=== PATIENT | female | born 1965 | race Caucasian/White ===

== ENCOUNTER 2017-06-26 10:10 | Emergency (ER) | payer OTHER ==
--- OUTSIDE RECORDS SUMMARY | 2017-06-26 10:19 | XMS REPORT ---
:1965 External Reference #:[id number] Author Organization [facility] Address [address] [place] [address] Phone [phone] Care Team Providers Name Role Phone Elmer Johnson M.D. Primary Care Physician Unavailable Payers Type Date Identification Numbers Payment Provider Subscriber Commercial Effective: Policy Number: [id number] [place] Jody-Magdi Lopez 2016 Medicaid PayID: [id number] [address] [place] [id number] Problems Date Description Provider Status Onset: 09/30/2011 Anemia Elmer Johnson M.D. Active Onset: 09/30/2011 Essential hypertension Elmer Johnson M.D. Active Onset: 09/30/2011 Obesity Elmer Johnson M.D. Active Family History Date Family Member(s) Problem(s) Comments Father CAD CABG at 85 Mother Hypertension Onset: (age 77 Mother Cancer, Colon Years) First Son No Current Problems Siblings 4 First Brother "Heart problems" not an SC First Brother Diabetes Second Brother Arthritis s/p knee replacment Second Brother CAD No SC. Stents in his 60's First Sister No Current Problems Second Sister Arthritis Grandchildren 3 Social History Type Date Description Comments Diet Diet has lots of added salt. At servings of fruits a day. least 2 servings of dairy a day. 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 Also Cigarette Use Never Smoked Cigarettes ETOH Use does not use alcohol Daily Caffeine Drinks on average 3 sodas a week. Allergies, Adverse Reactions, Alerts Date Description Reaction Status Severity Comments 11/21/2011 Cephalexin active hives 10/29/2011 NKDA inactive Medications Medication Date Status Form Strength Qnty SIG Indications Ordering Provider Baclofen 06/14 Active Tablets 10mg 60tab take 05/10 s tablet by Johnson, mouth M.DLili three times a day prn, may increase to 1 tab three times a day after 3 days if needed Clobetasol 05/24 Active Foam 0.05% 100gm apply 1.5 L21.8 Shawnti R. 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 Selenium Sulfide 04/11 Active Shampoo 2.25% 180ml Apply to scalp Johnson, 2x/week M.D. for 2 weeks, then every 1-4 weeks as needed Ketoconazole 03/30 Active Shampoo 2% 360un apply to L21.8 its scalp once Johnson, daily for M.D. 1-3 days Augmented 02/26 Active Gel 0.05% 15gm Apply to Paige Betameth affected Janice Elizalde area of Delicia Pizarro scalp once nightly for 2 weeks [place] 3 02/26 Active Capsules Paige Moira Elizalde, R.D. Atenolol 02/14 Active Tablets 50mg 45tab 05/10 by s mouth Alex, every day MLiliDLili Glucosamine 02/27 Active Capsules 500-400mg 2 po qd Elmer Reza Johnson M.D. Vitamin D-3 02/27 Active Capsules 1000Unit 1 po qd Moira Johnson Ibuprofen 02/27 Active Tablets 200mg 2 po qhs Moira Johnson Probiotic 02/27 Active Capsules 1 po qd Moira Johnson Hydrochlorothiazid 02/23 Active Tablets 25mg 90tab Take 1 Elmer s Tablet By Johnson, Mouth M.DLili Every Day Multi Vitamin 0000 Active Tablets Unknown Daily /0000 Vitamin B-12 00 Active Tablets 1000mcg 1 by mouth Unknown Natural / every day Magnesium 00 Active Tablets 250mg 1 by mouth Unknown /0000 every day Biotin 00 Active Tablets 5mg 2 by mouth Unknown /0000 every day Cyclobenzaprine 06/11 Hx Tablets 10mg 30tab take 1 Paige HCL s tablet by Tonio, - mouth M.DLili, R.D. 06/14 times a day if needed for pain Tetracycline HCL 07/27 Hx Capsules 500mg 20cap 1 po bid x L71.0 s 10 days Alex, - M.DLili 07/26 Tetracycline HCL 07/27 Hx Capsules 250mg 20cap 1 po bid x L71.0 s 10 days Alex, - (after the M.D. 07/26mg capsules are done) Doxycycline 07/27 Hx Capsules 50mg 120ca 1 po bid x Monohydrate ps 8 weeks Kenia Johnson M.DLili 02/26 Colace 02/27 Hx Capsules 100mg 30cap 2 po qhs s Kenia Johnson M.Kee 07/27 Clindamycin 02/27 Hx Gel 1% 30uni apply to L70.0 ts affected Alex - area(s) M.DLili 07/27 two times a day Keflex 10/28 Hx Capsules 500mg 30cap 1 po tid 682.8 Dorys /2011 s Blair Caceres, - M.DLili 11/07 Nystatin 10/28 Hx Cream [id number] 80gm apply to 110.5 t/GM affected Blair Caceres, - area bid - M.DLili 02/26 tid prn Medrol Dosepak 10/22 Hx Tablets 4mg 1Pack take oraly Coltwnti R. per Beto, - package [employer] OPERATOR-C 10/28 Gentamicin Sulfate 08/17 Hx Solution 0.3% 1unit apply 2 372.00 Dorys s gtts in Blair Caceres, - each eyes M.D. 10/28 every hours Lotrisone 11/29 Hx Cream 15g apply 110.5 sparingly K.W. - bid to Greg, 11/24 rash in M.D. /2009 armpit x14 days Diflucan 11/29 Hx Tablets 100mg 11tab 2 po x 1 110.5 s to start, K.W. - then 1 qd Greg, 11/24 x 9 days M.D. Nystatin 10/23 Hx Cream [id number] 30gm apply to t/GM affected Alex - area bid - M.DLili 11/24 tid prn Clotrimazole 09/27 Hx Cream 1% 30gm apply to affected Alex, - area bid M.D. 11/24 Atenolol 09/03 Hx Tablets 25mg 90tab take 1 s tablet by Kenia Johnson mouth M.DLili 02/14 every day Enalapril 06/30 Hx Tablets 20mg 60tab 1 po qd Kenia Raman.DLili 09/03 Nizoral 04/22 Hx Cream 2% 15gm Apply qd 110.5 Lore A. /2004 For 2-3 Kenia Dahl F.N.P.CLili 11/24 Enalapril 03/30 Hx Tablets 10mg 30tab 1 po qd Kenia Raman M.D. 06/30 Enalapril 02/23 Hx Tablets 5mg 60tab 1 po qd s Kenia Johnson.DLili 03/30 Lisinopril & 01/21 Hx Tablets 10mg;12.5 30tab 1 po qd Elmer HCTZ /2005 mg s Kenia Johnson M.D. 02/23 Amoxicillin 08/28 Hx Caps 500mg 21cap 1 tid x 7 s days Kenia Cui M.D. 01/07 Ortho Novum 12/27 Hx Pack 1unit one qd Caleb s tuesday Kenia Jiang.DLili 01/07 Cephalexin 12/27 Hx Capsules 500mg 28cap one po qid Lavelle JLili s x 7 days Moira Salas - 04/26 Zithromax 12/27 Hx Tablets 250mg 6tabs 2 on day one, Kenia Dhillon one qd x4 M.DLili Medications Administered in Office Medication Date Status Form Strength Qnty SIG Indications Ordering Provider Injection, Administered Injection Elmer Johnson, Depo-Medrol 018 M.D. 40MG Injection, Administered Injection Elmer Johnson, Depo-Medrol 017 M.D. 40MG Injection, Administered Injection Elmer Johnson, Depo-Medrol 017 M.D. 40MG Injection, Administered Injection Elmer Johnson, Depo-Medrol 017 M.D. 40MG Immunizations CPT Code Status Date Vaccine Lot # [id number] Given 11/25/2009 Td Age 7 to adult Decavac, Colbyivac, [facility] [id number] Refused 03/30/2017 Influenza Virus Vaccine, Quadrivalent, Split, 6-35 Mo, PF Vital Signs Date Vital Result Comment 06/14/2017 Weight 297.00 lb Weight in kg's 134.719 BP Systolic 142 mmHg BP Diastolic 88 mmHg Heart Rate 80 /min Body Temperature 98.2 F Respiratory Rate 24 /min 05/24/2017 Weight 295.00 lb Weight in kg's 133.812 BP Systolic 140 mmHg BP Diastolic 88 mmHg Heart Rate 68 /min Body Temperature 97.5 F Respiratory Rate 15 /min O2 % BldC Oximetry 98 % 03/30/2017 Weight 298.00 lb Weight in kg's 135.173 BP Systolic 140 mmHg BP Diastolic 90 mmHg Heart Rate 68 /min Body Temperature 98.4 F O2 % BldC Oximetry 97 % 02/26/2017 Weight 296.00 lb Weight in kg's 134.266 BP Systolic 140 mmHg BP Diastolic 100 mmHg Heart Rate 68 /min Body Temperature 97.7 F Respiratory Rate 16 /min 01/12/2017 BP Systolic 140 mmHg BP Diastolic 83 mmHg Heart Rate 56 /min Body Temperature 98.3 F 08/12/2016 Weight 296.00 lb Weight in kg's 134.266 BP Systolic 148 mmHg BP Diastolic 86 mmHg Heart Rate 68 /min Respiratory Rate 20 /min 08/04/2016 Weight 298.00 lb Weight in kg's 135.173 BP Systolic 160 mmHg BP Diastolic 88 mmHg Heart Rate 76 /min 07/27/2016 Weight 300.00 lb Weight in kg's 136.080 BP Systolic 142 mmHg BP Diastolic 96 mmHg Heart Rate 83 /min Body Temperature 97.8 F Respiratory Rate 18 /min Height 64 inches 5'4" BMI (Body Mass Index) 51.5 kg/m2 O2 % BldC Oximetry 98 % 02/27/2015 Weight 297.00 lb Weight in kg's 134.719 BP Systolic 170 mmHg BP Diastolic 110 mmHg Heart Rate 72 /min Height 63.5 inches 5'3.50" BMI (Body Mass Index) 51.8 kg/m2 O2 % BldC Oximetry 96 % 12/24/2011 Weight 298.00 lb Weight in kg's 135.173 BP Systolic 140 mmHg BP Diastolic 92 mmHg Heart Rate 88 /min 10/29/2011 BP Systolic 160 mmHg BP Diastolic 80 mmHg Heart Rate 60 /min Body Temperature 98.8 F O2 % BldC Oximetry 99 % 08/18/2011 Weight 296.00 lb Weight in kg's 134.266 BP Systolic 118 mmHg BP Diastolic 80 mmHg Heart Rate 88 /min Body Temperature 98.0 F 07/15/2010 Weight 300.00 lb Weight in kg's 136.080 BP Systolic 150 mmHg BP Diastolic 96 mmHg Heart Rate 80 /min Body Temperature 98.1 F 11/25/2009 Weight 297.00 lb Weight in kg's 134.719 BP Systolic 148 mmHg BP Diastolic 90 mmHg Heart Rate 56 /min Skip 11/29/2008 Weight 300.00 lb Weight in kg's 136.080 BP Systolic 150 mmHg BP Diastolic 110 mmHg Heart Rate 60 /min Body Temperature 97.3 F 09/13/2008 Weight 308.00 lb Weight in kg's 139.709 BP Systolic 148 mmHg BP Diastolic 92 mmHg Heart Rate 80 /min 08/31/2007 Weight 303.00 lb Weight in kg's 137.441 BP Systolic 156 mmHg repeat 144/70 BP Diastolic 78 mmHg repeat 144/70 Heart Rate 60 /min 06/30/2005 Weight 286.00 lb Weight in kg's 129.730 BP Systolic 190 mmHg BP Diastolic 100 mmHg Heart Rate 80 /min 04/22/2005 Weight 284.00 lb Weight in kg's 128.822 BP Systolic 169 mmHg BP Diastolic 100 mmHg Heart Rate 80 /min 03/30/2005 Weight 281.00 lb Weight in kg's 127.462 BP Systolic 170 mmHg BP Diastolic 100 mmHg Heart Rate 100 /min 02/23/2005 Weight 280.00 lb Weight in kg's 127.008 BP Systolic 160 mmHg BP Diastolic 100 mmHg Heart Rate 60 /min 01/21/2005 Weight 272.00 lb Weight in kg's 123.379 BP Systolic 190 mmHg BP Diastolic 100 mmHg 01/07/2005 Weight 276.00 lb Weight in kg's 125.194 BP Systolic 188 mmHg BP Diastolic 124 mmHg Heart Rate 96 /min Body Temperature 97.9 F 08/28/2002 BP Systolic 130 mmHg BP Diastolic 80 mmHg Body Temperature 97.0 F 02/12/2002 Weight 292.00 lb Weight in kg's 132.5 BP Systolic 140 mmHg BP Diastolic 90 mmHg Heart Rate 80 /min Height 64 inches BMI (Body Mass Index) 50.1 kg/m2 12/27/2001 Weight 289.00 lb Weight in kg's 131.1 Heart Rate 80 /min Body Temperature 97.0 F Results Test Date Test Result H/L Range Note CBC Auto Diff 07/27/2016 White Blood Count 7.6 10^3/uL 3.5-10.8 Red Blood Count 5.27 10^6/uL 4.0-5.4 Hemoglobin 15.3 g/dL 12.0-16.0 Hematocrit 47 % 35-47 Mean Corpuscular Volume 90 fL 80-97 Mean Corpuscular Hemoglobin 29 pg 27-31 Mean Corpuscular HGB Conc 33 g/dL 31-36 Red Cell Distribution Width 14 % 10.5-15 Platelet Count 215 10^3/uL 150-450 Mean Platelet Volume 9 um3 7.4-10.4 Abs Neutrophils 4.4 10^3/uL 1.5-7.7 Abs Lymphocytes 2.2 10^3/uL 1.0-4.8 Abs Monocytes 0.8 10^3/uL 0-0.8 Abs Eosinophils 0.2 10^3/uL 0-0.6 Abs Basophils 0.1 10^3/uL 0-0.2 Abs Nucleated RBC 0.01 10^3/uL Granulocyte % 57.8 % 38-83 Lymphocyte % 28.4 % 25-47 Monocyte % 9.9 % High 1-9 Eosinophil % 3.0 % 0-6 Basophil % 0.9 % 0-2 Nucleated Red Blood Cells % 0.1 Comp Metabolic Panel 07/27/2016 Sodium 136 mmol/L 133-145 Potassium 4.3 mmol/L 3.5-5.0 Chloride 99 mmol/L Low 101-111 Co2 Carbon Dioxide 29 mmol/L 22-32 Anion Gap 8 mmol/L 2-11 Glucose 84 mg/dL 70-100 Blood Urea Nitrogen 15 mg/dL 6-24 Creatinine 0.74 mg/dL 0.51-0.95 BUN/Creatinine Ratio 20.3 High 8-20 Calcium 10.2 mg/dL 8.6-10.3 Total Protein 7.5 g/dL 6.4-8.9 Albumin 4.2 g/dL 3.2-5.2 Globulin 3.3 g/dL 2-4 Albumin/Globulin Ratio 1.3 1-3 Total Bilirubin 0.50 mg/dL 0.2-1.0 Alkaline Phosphatase 63 U/L 34-104 Alt 38 U/L 7-52 Ast 27 U/L 13-39 Egfr Non- 82.4 >60 Egfr 106.0 >60 1 Laboratory test finding 07/27/2016 TSH (Thyroid Stim 8.49 mcIU/mL High 0.34-5.60 2 Horm) Vitamin B12 669 pg/mL 180-914 3 Basic Metabolic Panel 02/28/2015 Sodium 136 mmol/L 133-145 Potassium 4.4 mmol/L 3.5-5.0 Chloride 99 mmol/L Low 101-111 Co2 Carbon Dioxide 29 mmol/L 22-32 Anion Gap 8 mmol/L 2-11 Glucose 108 mg/dL High 70-100 Blood Urea Nitrogen 17 mg/dL 6-24 Creatinine 0.72 mg/dL 0.51-0.95 BUN/Creatinine Ratio 23.6 High 8-20 Calcium 10.2 mg/dL 8.6-10.3 Egfr Non- 85.4 >60 Egfr 109.8 >60 4 Lipid Profile (Trig/Chol/HDL) 02/28/2015 Triglycerides 308 mg/dL 5 Cholesterol 184 mg/dL 6 HDL Cholesterol 35.6 mg/dL 7 LDL Cholesterol 87 mg/dL 8 Laboratory test finding 12/24/2011 Hemoglobin 13.2 CBC Auto Diff 11/02/2011 White Blood Count 10.6 CUMM 4.8-10.8 Red Cell Count 4.70 CUMM 4.2-5.4 Hemoglobin 9.4 g/dL Low 12.0-16.0 Hematocrit 30 % Low 35-47 Mean Corpuscular Volume 65 um3 Low 79-97 9 Mean Corpuscular Hemoglob 20 pg Low 27-31 Mean Corpuscular HGB Cone 31 g/dL Low 32-36 Redcell Distribution WDTH 18 % High 10.5-15 10 Platelet Count 332 CUMM 150-450 Mean Platelet Volume 7.4 um3 7.4-10.4 Gran % 71.3 % 38-83 Lymph % 11.8 % Low 25-47 Mononuclear % 11.0 % High 1-9 Eosinophil % 5.8 % 0-6 Basophil % 0.1 % 0-2 Abs Lymphs 1.3 1.0-4.8 Abs Mononuclear 1.2 High 0-0.8 Absolute Neutrophil Count 7.5 1.5-7.7 Abs Eosinophils 0.6 0-0.6 Abs Basophils 0 0-0.2 Comp Metabolic Panel 11/02/2011 Sodium 136 mmol/L 135-145 Potassium 3.7 mmol/L 3.5-5.0 Chloride 103 mmol/L 101-111 Co2 (Carbon Dioxide) 25.0 mmol/L 22-32 Anion Gap 8.0 mmol/L 2-11 11 Glucose 115 mg/dL High 70-100 BUN 10 mg/dL 6-24 Creatinine 0.9 mg/dL 0.50-1.40 One Over Creatinine 1.11 BUN/Creatinine Ratio 11.1 8-20 Calcium 9.2 mg/dL 8.1-9.9 Total Protein 6.6 GM/DL 6.2-8.1 Albumin 3.3 GM/DL Low 3.6-5.4 Globulin 3.3 GM/DL 2-4 Albumin/Globulin Ratio 1.0 1-3 Bilirubin Total 0.5 mg/dL 0.4-1.5 12 Alkaline Phosphatase 58 U/L 30-110 Alt (SGPT) 27 U/L 14-54 Ast (Sgot) 38 U/L 12-42 eGFR Non- 66.8 > 60 eGFR 85.9 > 60 13 Laboratory test finding 11/02/2011 C Reactive Protein 1.2 mg/dL High Less Than 0.5 Comp Metabolic Panel 11/01/2011 Sodium 136 mmol/L 135-145 Potassium 3.9 mmol/L 3.5-5.0 Chloride 106 mmol/L 101-111 Co2 (Carbon Dioxide) 26.0 mmol/L 22-32 Anion Gap 4.0 mmol/L 2-11 14 Glucose 138 mg/dL High 70-100 BUN 14 mg/dL 6-24 Creatinine 0.7 mg/dL 0.50-1.40 One Over Creatinine 1.42 BUN/Creatinine Ratio 20.0 8-20 Calcium 8.7 mg/dL 8.1-9.9 Total Protein 6.0 GM/DL Low 6.2-8.1 Albumin 2.9 GM/DL Low 3.6-5.4 Globulin 3.1 GM/DL 2-4 Albumin/Globulin Ratio 0.9 Low 1-3 Bilirubin Total 0.4 mg/dL 0.4-1.5 15 Alkaline Phosphatase 53 U/L 30-110 Alt (SGPT) 20 U/L 14-54 Ast (Sgot) 27 U/L 12-42 eGFR Non- 89.3 > 60 eGFR 114.9 > 60 16 CBC Auto Diff 11/01/2011 White Blood Count 7.8 CUMM 4.8-10.8 Red Cell Count 4.53 CUMM 4.2-5.4 Hemoglobin 9.1 g/dL Low 12.0-16.0 Hematocrit 29 % Low 35-47 Mean Corpuscular Volume 65 um3 Low 79-97 Mean Corpuscular Hemoglob 20 pg Low 27-31 Mean Corpuscular HGB Cone 31 g/dL Low 32-36 Redcell Distribution WDTH 20 % High 10.5-15 Platelet Count 310 CUMM 150-450 Mean Platelet Volume 7.8 um3 7.4-10.4 17 Manual Differential 11/01/2011 Polysegmented Neutrophil 77 % 38-83 Lymphocyte 14 % Low 25-47 Monocyte 5 % 0-13 Eosinophil 4 % 0-6 Anisocytosis SLIGHT Microcytosis SLIGHT Hypochromasia 1+ Ovalocytes FEW Manual Diff Comments (SEE NOTE) 18 Laboratory test finding 03/16/2010 Hemoglobin 14.1 Basic Metabolic Panel 11/25/2009 Sodium 134 mmol/L Low 135-145 Potassium 4.1 mmol/L 3.5-5.0 Chloride 101 mmol/L 101-111 Co2 (Carbon Dioxide) 25.0 mmol/L 22-32 Anion Gap 8.0 mmol/L 2-11 19 Glucose 77 mg/dL 70-100 20 BUN 11 mg/dL 6-24 Creatinine 0.80 mg/dL 0.50-1.40 One Over Creatinine 1.20 BUN/Creatinine Ratio 13.8 8-20 Calcium 9.2 mg/dL 8.1-9.9 21 eGFR Non- 82.1 > 60 eGFR 99.3 > 60 22 Lipid Profile (Trig/Chol/HDL) 11/25/2009 Triglyceride 208 mg/dL High 40- 200 Cholesterol 140 mg/dL Less Than 200 23 High Density Lipoprotein 36 mg/dL Low 40-60 24 Cholesterol/HDL Ratio 3.89 AVERAGE 1-4.44 Low Density Lipoprotein 62 mg/dL Less Than 100 25 Laboratory test finding 11/25/2009 Hemoglobin 10.0 g/dL Low 12.0-16.0 Urine Microalbumin Random 09/13/2008 Microalbumin (MG/L) 37.0 mg/L Urine Creatinine 188.31 mg/dL [place]/Creatinine Ratio 19.6 UG/MG Less Than 30 26 Urine DIP 09/22/2007 Leukocytes ++ Neg Urine Nitrites NEG Neg Urine pH 5 5-6 Total Protein, Urine TRACE Neg Urine Glucose NORM Norm Urine Ketones NEG Neg Urobilinogen NORM Norm Urine Bilirubin NEG Neg Urine Blood NEG Neg Specific [place] N/A Low 1.01-1.02 Microalbumin Random Urine 09/20/2007 Microalbumin, Random 36.9 ug/mL High 0.0-20.0 Creatinine,Random Ur 113.3 mg/dL Microalb/Creat Ratio 32.6 ug/mgCREA High 0.0-30.0 Urine DIP 09/20/2007 Leukocytes TRACE Neg Urine Nitrites NEG Neg Urine pH 5 5-6 Total Protein, Urine TRACE Neg Urine Glucose NORM Norm Urine Ketones NEG Neg Urobilinogen NORM Norm Urine Bilirubin NEG Neg Urine Blood NEG Neg Specific Victoria N/A Low 1.01-1.02 Laboratory test finding 02/14/2007 GFR (Calculated) 58 27 Basic Metabolic Panel 02/14/2007 Glucose 87 mg/dL 70-100 BUN 16 mg/dL 4-18 Creatinine, Serum 1.1 mg/dL 0.5-1.2 Sodium 140 mmol/L 136-146 Potassium 4.3 mmol/L 3.5-5.3 Chloride 107 mmol/L 98-110 Carbon Dioxide 17 mmol/L Low 20-32 Calcium 9.3 mg/dL 8.4-10.4 Basic Metabolic Panel 03/30/2005 One Over Creatinine 1.11 Anion Gap 6.0 mmol/L 2-11 28 BUN 13 mg/dL 6-24 Calcium 9.6 mg/dL 8.7-10.2 Chloride 105 mmol/L 101-111 Co2 (Carbon Dioxide) 27.0 mmol/L 22-32 Glucose 93 mg/dL 70-105 Potassium 4.3 mmol/L 3.5-5.0 Sodium 138 mmol/L 135-145 BUN/Creatinine Ratio 14.4 8-20 Creatinine 0.9 mg/dL 0.5-1.4 Comp Metabolic Panel 01/07/2005 One Over Creatinine 1.11 Anion Gap 6.0 mmol/L 2-11 29 Albumin/Globulin Ratio 1.1 1-3 Albumin 3.4 GM/DL Low 3.6-5.4 Alkaline Phosphatase 71 U/L 30-110 Alt (SGPT) 31 U/L 14-54 Ast (Sgot) 33 U/L 12-42 BUN 13 mg/dL 6-24 Calcium 9.3 mg/dL 8.7-10.2 Chloride 104 mmol/L 101-111 Co2 (Carbon Dioxide) 29.0 mmol/L 22-32 Globulin 3.2 GM/DL 2-4 Glucose 98 mg/dL 70-105 Potassium 4.2 mmol/L 3.5-5.0 Sodium 139 mmol/L 135-145 Bilirubin Total 0.6 mg/dL 0.4-1.5 Total Protein 6.6 GM/DL 6.2-8.1 BUN/Creatinine Ratio 14.4 8-20 Creatinine 0.9 mg/dL 0.5-1.4 Laboratory test finding 01/07/2005 TSH 3.95 MIU/ML 0.34-5.60 CBC With Manual Diff 01/07/2005 White Blood Count 9.7 CUMM 4.8-10.8 Anisocytosis 1+ Hematocrit 40 % 35-47 Hemoglobin 12.5 g/dL 12.0-16.0 Eosenophil 4 % 0-6 Lymphocyte 17 % 5-47 Mean Corpuscular HGB Cone 32 g/dL 32-36 Mean Corpuscular Hemoglob 24 pg Low 27-31 Mean Corpuscular Volume 76 um3 Low 79-97 Monocyte 3 % 0-13 Mean Platelet Volume 7.9 um3 7.4-10.4 Platelet Count 365 CUMM 150-450 Polychromasia SLIGHT Polysegmented Neutrophil 76 % 38-83 Red Cell Count 5.20 CUMM 4.2-5.4 Redcell Distribution WDTH 17 % High 10.5-15 Urine DIP 01/07/2005 Leukocytes neg Neg Urine Nitrites neg Neg Urine pH 5 5-6 Total Protein, Urine 100 High Neg Urine Glucose norm Norm Urine Ketones neg Neg Urobolinogen norm Norm Urine Bilirubin neg Neg Urine Blood 250 High Neg Specific Victoria na Low 1.01-1.02 CBC With Electronic Diff 01/07/2005 White Blood Count 9.7 CUMM 4.8-10.8 Hematocrit 40 % 35-47 Hemoglobin 12.5 g/dL 12.0-16.0 Mean Corpuscular HGB Cone 32 g/dL 32-36 Mean Corpuscular Hemoglob 24 pg Low 27-31 Mean Corpuscular Volume 76 um3 Low 79-97 Mean Platelet Volume 7.9 um3 7.4-10.4 Platelet Count 365 CUMM 150-450 Red Cell Count 5.20 CUMM 4.2-5.4 Redcell Distribution WDTH 17 % High 10.5-15 Laboratory test finding 08/28/2002 Strep Screen POSITIVE Neg Laboratory test finding 02/12/2002 Pap Smear REC'D-SEE IMAGE Urine DIP 02/12/2002 Leukocytes NEG Neg Urine Nitrites NEG Neg Urine pH 5 5-6 Total Protein, Urine NL Neg Urine Glucose NL Norm Urine Ketones NL Neg Urobolinogen NL Norm Urine Bilirubin NL Neg Urine Blood NL Neg Specific Victoria N/A Low 1.01-1.02 Laboratory test finding 02/12/2002 Hemoglobin 12.2 1 Because ethnic data is not always readily available, this report includes an eGFR for both -Americans and non- Americans. The National Kidney Disease Education Program (NKDEP) does not endorse the use of the MDRD equation for patients that are not between the ages of 18 and 70, are , have extremes of body size, muscle mass, or nutritional status, or are non- or non-. According to the National Kidney Foundation, irrespective of diagnosis, the stage of the disease is based on the level of kidney function: Stage Description GFR(mL/min/1.73 m(2)) 1 Kidney damage with normal or decreased GFR 90 2 Kidney damage with mild decrease in GFR 60-89 3 Moderate decrease in GFR 30-59 4 Severe decrease in GFR 15-29 5 Kidney failure <15 (or dialysis) 2 [id number] 3 Normal Range 180 to 914 Indeterminate Range 145 to 180 Deficient Range <145 4 Because ethnic data is not always readily available, this report includes an eGFR for both -Americans and non- Americans. The National Kidney Disease Education Program (NKDEP) does not endorse the use of the MDRD equation for patients that are not between the ages of 18 and 70, are , have extremes of body size, muscle mass, or nutritional status, or are non- or non-. According to the National Kidney Foundation, irrespective of diagnosis, the stage of the disease is based on the level of kidney function: Stage Description GFR(mL/min/1.73 m(2)) 1 Kidney damage with normal or decreased GFR 90 2 Kidney damage with mild decrease in GFR 60-89 3 Moderate decrease in GFR 30-59 4 Severe decrease in GFR 15-29 5 Kidney failure <15 (or dialysis) 5 Desirable <150 Borderline high 150-199 High 200-499 Very High >500 6 Desirable <200 Borderline high 200-239 High >239 7 Low <40 Desirable: 40-60 High: >60 8 Desirable: <100 mg/dL Near Optimal: 100-129 mg/dL Borderline High: 130-159 mg/dL High: 160-189 mg/dL Very High: >189 mg/dL 9 CONSISTENT WITH PREVIOUS RESULTS 10 CONSISTENT WITH PREVIOUS RESULTS 11 Anion gap measurement may be of limited value in the presence of any alkalosis, especially in a combined acid base disorder. . 12 A metabolite of Naproxen, O-desmethylnaproxen, has been shown to interfere with the [place] method for measuring total bilirubin. Samples from patients who have taken Naproxen have shown spurious elevation in total bilirubin levels. 13 Because ethnic data is not always readily available, this report includes an eGFR for both -Americans and non- Americans. The National Kidney Disease Education Program (NKDEP) does not endorse the use of the MDRD equation for patients that are not between the ages of 18 and 70, are , have extremes of body size, muscle mass, or nutritional status, or are non- or non-. According to the National Kidney Foundation, irrespective of diagnosis, the stage of the disease is based on the level of kidney function: Stage Description GFR(mL/min/1.73 m(2)) 1 Kidney damage with normal or decreased GFR 90 2 Kidney damage with mild decrease in GFR 60-89 3 Moderate decrease in GFR 30-59 4 Severe decrease in GFR 15-29 5 Kidney failure <15 (or dialysis) 14 Anion gap measurement may be of limited value in the presence of any alkalosis, especially in a combined acid base disorder. . 15 A metabolite of Naproxen, O-desmethylnaproxen, has been shown to interfere with the [place] method for measuring total bilirubin. Samples from patients who have taken Naproxen have shown spurious elevation in total bilirubin levels. 16 Because ethnic data is not always readily available, this report includes an eGFR for both -Americans and non- Americans. The National Kidney Disease Education Program (NKDEP) does not endorse the use of the MDRD equation for patients that are not between the ages of 18 and 70, are , have extremes of body size, muscle mass, or nutritional status, or are non- or non-. According to the National Kidney Foundation, irrespective of diagnosis, the stage of the disease is based on the level of kidney function: Stage Description GFR(mL/min/1.73 m(2)) 1 Kidney damage with normal or decreased GFR 90 2 Kidney damage with mild decrease in GFR 60-89 3 Moderate decrease in GFR 30-59 4 Severe decrease in GFR 15-29 5 Kidney failure <15 (or dialysis) 17 Anemia 3+ Microcytosis 2+ Anisocytosis 18 CBC AND SMEAR REVIEWED. Microcytic anemia noted. Red cell parameters suggstive of hemoglobinopathy or production defect. Additional studies may be considered. REVIEWED BY RENITA NORTON MD 19 Anion gap measurement may be of limited value in the presence of any alkalosis, especially in a combined acid base disorder. . 20 Note change in reference range as of 12/28/07. The change was based on recommendations from the [place] [employer]. 21 Please note change in reference range effective 07 . 22 Because ethnic data is not always readily available, this report includes an eGFR for both -Americans and non- Americans. The National Kidney Disease Education Program (NKDEP) does not endorse the use of the MDRD equation for patients that are not between the ages of 18 and 70, are , have extremes of body size, muscle mass, or nutritional status, or are non- or non-. According to the National Kidney Foundation, irrespective of diagnosis, the stage of the disease is based on the level of kidney function: Stage Description GFR(mL/min/1.73 m(2)) 1 Kidney damage with normal or decreased GFR 90 2 Kidney damage with mild decrease in GFR 60-89 3 Moderate decrease in GFR 30-59 4 Severe decrease in GFR 15-29 5 Kidney failure <15 (or dialysis) 23 CHOLESTEROL INTERPRETATION: Desirable: Less than 200 MG/DL Borderline-High Risk: 200-239 MG/DL High-Risk: 240 MG/DL and over 24 HDL INTERPRETATION: Undesirable: High Risk: Less than 40 MG/DL Desirable: Low Risk: Greater than 60 MG/DL 25 LDL INTERPRETATION: Low Risk Optimal Level: LDL Less than 100 MG/DL Near or Above Optimal: LDL 100-129 MG/DL Borderline High Risk: LDL 130-159 MG/DL High Risk: LDL 160-189 MG/DL Very High Risk: LDL Greater than 189 MG/DL 26 MICROALBUMINURIA IN A RANDOM SAMPLE IS DEFINED : MICROALBUMIN/CREATININE RATIO OF 30-299 ug/mg. . 27 mL/min/1.73m2 . Normal Function or Mild Renal Disease, if clinically at risk: >or=60 Moderately decreased: 30 - 59 Severely decreased: 15 - 29 Renal Failure: <15 . Please note that the MDRD equation requires an additional adjustment for -Americans (multiply the GFR result by 1.210). . Glomerular Filtration Rate (GFR) is estimated based on the MDRD equation, which assumes a steady state for creatinine (Barbara Int Med 139/2 137-149, 2003), as recommended by the National Kidney Disease Education Program in conjunction with the National Institutes of Health and the National Kidney Foundation. . Clinical conditions in which it may be necessary to measure GFR by using clearance methods include extremes of age and body size, severe malnutrition or obesity, diseases of skeletal muscle, paraplegia or quadriplegia, vegetarian diet, rapidly changing kidney function, and calculation of the dose of potentially toxic drugs that are excreted by the kidneys. 28 Anion gap measurement may be of limited value in the presence of any alkalosis, especially in a combined acid base disorder. . 29 Anion gap measurement may be of limited value in the presence of any alkalosis, especially in a combined acid base disorder. . Procedures Date CPT Code Description Status 05/24/2017 Aspiration/Injection Major Bursa Completed 01/12/2017 Aspiration/Injection Major Bursa Completed 08/12/2016 Aspiration/Injection Major Bursa Completed 08/04/2016 Aspiration/Injection Major Bursa Completed 12/24/2011 94978 EKG, at Least 12 Leads w/Interpretation and Report Completed Encounters Type Date Location Provider CPT E/M Dx Office Visit 03/30/2017 11:30a Main Office Elmer Johnson M.D. 03969 L21.8 Office Visit 02/26/2017 10:15a Main Office Paige Elizalde M.D., R.DLili 90370 L21.8 Office Visit 08/04/2016 11:30a Main Office Elmer Johnson M.D. 08727 N64.59 M17.9 M25.562 Office Visit 07/27/2016 11:30a Main Office Elmer Johnson M.D. 66087 Z00.00 I10 M25.562 L71.0 G60.9 Office Visit 02/27/2015 11:30a Main Office Elmer Johnson M.D. 93439 I10 L70.0 Office Visit 12/24/2011 10:00a Main Office Elmer Johnson M.D. 96595 401.9 285.9 Office Visit 10/29/2011 9:30a Main Office Dorys Caceres M.D. 49726 682.8 110.5 401.9 Office Visit 08/18/2011 11:15a Main Office Dorys Caceres M.D. 58321 372.00 Office Visit 07/15/2010 8:45a [place] [address] 380.4 Office Visit 11/25/2009 11:45a Main Office Elmer Johnson M.D. 47668 401.9 V06.5 Office Visit 11/29/2008 10:15a Main Office Ruthie Garza M.D. 34244 110.5 Office Visit 09/13/2008 11:00a Main Office Elmer Johnson M.D. 50933 401.9 791.0 Office Visit 08/31/2007 10:45a Main Office Elmer Johnson M.D. 36681 401.9 Office Visit 06/30/2005 10:30a Main Office Elmer Johnson M.D. 55534 401.9 Office Visit 04/22/2005 9:30a Main Office Wali QuesadaCLili 71261 110.5 Office Visit 03/30/2005 10:45a Main Office Elmer Johnson M.D. 36338 401.9 Office Visit 02/23/2005 10:45a Main Office Elmer Johnson M.D. 44651 401.9 Office Visit 01/21/2005 9:45a Main Office Elmer Johnson M.D. 54565 401.9 Office Visit 01/07/2005 2:00p Main Office Elmer Johnson M.D. 36755 401.9 278.00 Office Visit 08/28/2002 1:15p Main Office Nicolasa Cui M.D. 21248 463 Office Visit 02/12/2002 9:15a Main Office Nicolasa Cui M.D. 74101 401.9 V72.3 Office Visit 12/27/2001 6:00p Main Office Caleb Jiang M.D. 23550 466.0 466 Plan of Care Future Appointment(s):07/27/2017 9:30 am - Elmer Johnson M.D. at Main [id number] - Elmer Johnson M.D.M54.9 Dorsalgia, unspecifiedComments:Likely musculoskeletal strain.No radicular sx.1. Discussed gentle ROM exercises, rest, antiinflammatories, muscle relaxants, given the spasmotic nature of the pain I want to try a different muscle relaxant. and pain control.2. Discussed alarm sx. of persistent weakness, numbness or new incontinence.3.PT referral if sx. not improving. 4. She declines narcotics for now.The pain is very episodic so these are not likely the best treatment anyhow.
[2017-06-26 10:30] VITALS: BP 159/85
--- NOTE | 2017-06-26 11:51 | RAD ---
INDICATION: Left shoulder injury. TECHNIQUE: 4 views of the left shoulder were obtained. FINDINGS: The bones are in normal alignment. No fracture is seen. Joint spaces appear maintained. IMPRESSION: NO EVIDENCE OF FRACTURE.
--- NOTE | 2017-06-26 13:08 | UC ---
Homero Escalante Stephanie, scribed for Omar Hayden MD on 06/26/17 at 1137 . Upper Extremity HPI - HPI Summary HPI Summary: The pt is a 51 y/o F presenting to with c/o L shoulder pain that began yesterday morning s/p fall. The pt states she missed a step while walking down the stairs and caught her L arm on a railing. Aggravating factors include lifting and movement. The pt denies wrist pain. The pain is rated as a 7 in severity. - History of Current Complaint Chief Complaint: UCUpperExtremity Stated Complaint: SHOULDER INJURY Time Seen by Provider: 06/26/17 11:10 Hx Obtained From: Patient Hx Last Menstrual Period: unknown ?: No Onset/Duration: Sudden Onset - s/p fall yesterday morning Severity Currently: Moderate Pain Intensity: 4 Pain Scale Used: 0-10 Numeric Location Of Pain: Is Discrete @ - L shoulder Aggravating Factor(s): Movement, Lifting Alleviating Factor(s): Rest Associated Signs And Symptoms: Positive: Negative - Allergies/Home Medications Allergies/Adverse Reactions: Allergies Allergy/AdvReac Type Severity Reaction Status Date / Time cephalexin Allergy Intermediate Hives Verified 06/26/17 10:31 Home Medications: Home Medications Atenolol TAB* [Tenormin TAB* 25 MG] 25 mg PO DAILY 06/26/17 [History Confirmed 06/26/17] hydroCHLOROthiazide [Hydrochlorothiazide] 25 mg PO DAILY 06/26/17 [History Confirmed 06/26/17] PMH/Surg Hx/FS Hx/Imm Hx Previously Healthy: No - The pt denies past medical hx. - Surgical History Surgical History: None Surgery Procedure, Year, and Place: denies - Family History Known Family History: Positive: Cardiac Disease, Hypertension, Other - cancer - Social History Occupation: Works From/At Home Lives: With Family Alcohol Use: None Substance Use Type: Marijuana Smoking Status (MU): Never Smoked Tobacco Review of Systems Constitutional: Negative Skin: Negative Eyes: Negative ENT: Negative Respiratory: Negative Cardiovascular: Negative Gastrointestinal: Negative Genitourinary: Negative Motor: Negative Neurovascular: Negative Musculoskeletal: Other: - L shoulder pain, denies bilateral wrist pain Neurological: Negative Psychological: Negative All Other Systems Reviewed And Are Negative: Yes Physical Exam Triage Information Reviewed: Yes Vital Signs: Initial Vital Signs Temp 97.8 F 02/18/18 10:25 Pulse 57 06/26/17 10:25 Resp 18 06/26/17 10:25 BP 159/85 06/26/17 10:25 Pulse Ox 96 06/26/17 10:25 Vital Signs Reviewed: Yes - Additional Comments General: well-appearing, no pain distress Skin: warm, color reflects adequate perfusion, dry Head: normal Eyes: EOMI, REINALDO ENT: normal Neck: supple, nontender Respiratory: CTA, breath sounds present Cardiovascular: RRR Abdomen: soft, nontender Bowel: present Musculoskeletal: ROM T7 bilaterally. Tender at shoulder joint. Strength 5/5. Slight decreased ROM Abduction: 170 R, 160 L Extension: R 180, L 160 Neurological: normal, sensory/motor intact, A&O x3 Psychological: affect/mood appropriate Diagnostics - Radiology XRAY shoulder Xray Interpretation: No Acute Changes Radiology Interpretation Completed By: Radiologist - NO EVIDENCE OF FRACTURE Upper Extremity Course/Dx - Course Course Of Treatment: Medications reviewed. BP noted and advised to follow up with PCP. DISCUSSED X-RAY RESULTS WITH PATIENT. - Differential Dx/Diagnosis Provider Diagnoses: LEFT SHOULDER SPRAIN, PROBABLE ROTATOR CUFF INJURY Discharge - Discharge Plan Condition: Stable Disposition: HOME Patient Education Materials: Rotator Cuff Injury (ED), Shoulder Sprain (ED) Referrals: [facility] [Outside] Elmer Johnson MD [Primary Care Provider] - Additional Instructions: FOLLOW UP WITH YOUR DOCTOR. GET RECHECKED FOR ANY WORSENING OF YOUR CONDITION OR QUESTIONS OR CONCERNS. Your blood pressure was elevated during todays visit; please follow up with your primary care provider within a week for further evaluation The documentation as recorded by the Homero brown Stephanie accurately reflects the service I personally performed and the decisions made by me, Omar Hayden MD.
== END 2017-06-26 12:27 | disposition home or self-care (01) ==
LOC: UCEAST 10:10
DX: S43.402A Unspecified sprain of left shoulder joint, initial encounter (principal); W19.XXXA Unspecified fall, initial encounter; Y92.9 Unspecified place or not applicable
CPT/HCPCS: 99211; G0463

== ENCOUNTER 2019-03-20 17:34 | Emergency (ER) | payer OTHER ==
[2019-03-20 17:49] VITALS: BP 153/86
--- NOTE | 2019-03-20 17:51 | UC ---
Skin Complaint HPI - HPI Summary HPI Summary: 53 yo female presents with lesion on left calf. She tells me that on 03/15 she noticed some red bumps on the back of her left calf that were slightly tender. Since that time they progressed to becoming more red, then blistering, then oozing watery discharge, then crusted yesterday. She is concerned about a tick bite. She feels well otherwise and has never had shingles. She denies fever, chills, recent illness, similar lesions elsewhere. - History of Current Complaint Chief Complaint: UCRash Time Seen by Provider: 03/20/19 17:50 Stated Complaint: SPOT ON LEG Hx Obtained From: Patient Hx Last Menstrual Period: unknown Onset/Duration: Gradual Onset Onset Severity: Mild Current Severity: Mild Pain Intensity: 2 Pain Scale Used: 0-10 Numeric - Allergy/Home Medications Allergies/Adverse Reactions: Allergies Allergy/AdvReac Type Severity Reaction Status Date / Time cephalexin Allergy Intermediate Hives Verified 03/20/19 17:39 Home Medications: Home Medications Irbesartan 1 tab PO DAILY 03/20/19 [History Confirmed 03/20/19] Levothyroxine TAB* [Synthorid 112 MCG TAB*] 1 tab PO DAILY 03/20/19 [History] PMH/Surg Hx/FS Hx/Imm Hx Endocrine History: Hypothyroidism Cardiovascular History: Hypertension - Surgical History Surgical History: None Surgery Procedure, Year, and Place: denies - Family History Known Family History: Positive: Cardiac Disease, Hypertension, Other - cancer - Social History Occupation: Employed Full-time Lives: With Family Alcohol Use: None Substance Use Type: None Smoking Status (MU): Never Smoked Tobacco Review of Systems All Other Systems Reviewed And Are Negative: No Constitutional: Positive: Negative Skin: Positive: Rash Eyes: Positive: Negative ENT: Positive: Negative Respiratory: Positive: Negative Cardiovascular: Positive: Negative Gastrointestinal: Positive: Negative Neurological: Positive: Negative Psychological: Positive: Negative Physical Exam - Summary Physical Exam Summary: GENERAL: NAD. WDWN. No pain distress. SKIN: LEFT CALF: 1.5cm area of cluster of dried erythematous scabs that are slightly TTP. No active drainage. No streaking or abscess appreciated. CHEST: No accessory muscle use. Breathing comfortably and in no distress. CV: Pulses intact. Cap refill <2seconds NEURO: Alert. PSYCH: Age appropriate behavior. Triage Information Reviewed: Yes Vital Signs: Initial Vital Signs Temp 97.6 F 03/20/19 17:41 Pulse 82 03/20/19 17:41 Resp 16 03/20/19 17:41 BP 153/86 03/20/19 17:41 Pulse Ox 99 03/20/19 17:41 Vital Signs Reviewed: Yes Course/Dx - Course Course Of Treatment: History and exam consistent with shingles. Area has started scabbing. Educated pt. Advised to keep covered daily until well healed - Diagnoses Provider Diagnosis: Shingles Discharge ED - Sign-Out/Discharge Documenting (check all that apply): Patient Departure All imaging exams completed and their final reports reviewed: No Studies - Discharge Plan Condition: Stable Disposition: HOME Patient Education Materials: Shingles (ED), Shingles Vaccine (ED) Referrals: Elmer Johnson MD [Primary Care Provider] - Additional Instructions: If you develop a fever, shortness of breath, chest pain, new or worsening symptoms - please call your PCP or go to the ED immediately. Your blood pressure was slightly elevated at todays visit. Please see your primary provider within 4 weeks for recheck and re-evaluation. Please keep the area covered daily until well healed - Billing Disposition and Condition Condition: STABLE Disposition: Home
== END 2019-03-20 18:10 | disposition home or self-care (01) ==
LOC: UCEAST 17:34
DX: B02.9 Zoster without complications (principal); E03.9 Hypothyroidism, unspecified; I10 Essential (primary) hypertension; Z88.1 Allergy status to other antibiotic agents; Z79.890 Hormone replacement therapy; Z79.899 Other long term (current) drug therapy; Z82.49 Family history of ischemic heart disease and other diseases of the circulatory system
CPT/HCPCS: 99211; G0463

== ENCOUNTER 2020-10-23 05:44 | Inpatient (IN) ==
[2020-10-23] MEDS ORDERED: Buffered Lidocaine 1% SYRIN 1 ml INTRADERM ONE (06:00)
[2020-10-23] MEDS ORDERED: Lactated Ringers 1000 ml BAG 1,000 ML IV SCH (06:00)
[2020-10-23] MEDS ORDERED: Clindamycin 900 MG/D5W BAG 900 MG/50 ML BAG IVPB ONE (07:05)
[2020-10-23] MEDS ORDERED: Propofol 10 MG/ML 20 ML BTL ONE ×2 (07:06→09:36)
[2020-10-23] MEDS ORDERED: Lidocaine 2% PF 5 ML VIAL ONE (07:07)
[2020-10-23] MEDS ORDERED: Phenylephrine IV 10 MG/ML 1 ml VIAL ONE (07:11)
[2020-10-23] MEDS ORDERED: Ketamine HCL 50 mg/ml 10 ml VIAL (500 MG) ONE (07:11)
[2020-10-23] MEDS ORDERED: Ropivacaine 5 MG/ML 20 ML VIAL 0.5% (100 MG) ONE (07:15)
[2020-10-23] MEDS ORDERED: Lidocaine 1% MPF 5 ML VIAL ONE (07:35)
[2020-10-23] MEDS ORDERED: ROPIVACAINE 5 MG/ML 30 ML BTL (0.5%) ONE (07:35)
[2020-10-23] MEDS ORDERED: Midazolam 5 mg/5 ml VIAL 1 mg/ml 5 ml VIAL (5 mg) ONE (07:40)
[2020-10-23] MEDS ORDERED: Acetaminophen IV 1 GM/100ML 100 ML ONE (08:23)
[2020-10-23] MEDS ORDERED: Glycopyrrolate IV 0.2 MG/ML 1 ML VIAL ONE (08:28)
[2020-10-23] MEDS ORDERED: DiMENhydriNATE IV 50 mg/ml 1 ml VIAL IV PUSH PRN (08:41)
[2020-10-23] MEDS ORDERED: Naloxone 0.4 mg VIAL 0.4 mg/ml 1 ml VIAL IV PRN ×2 (08:41→08:43)
[2020-10-23] MEDS ORDERED: HYDROmorphone 1 MG/1 ML SYRINGE IV PRN (08:43)
[2020-10-23] MEDS ORDERED: Lactulose 30 ml UDC PO PRN (08:52)
[2020-10-23] MEDS ORDERED: Magnesium Hydroxide LIQ 30 ML UDC PO PRN (08:52)
[2020-10-23] MEDS ORDERED: Ondansetron 4 mg VIAL 2 MG/ML 2 ml VIAL IV PRN (08:52)
[2020-10-23] MEDS ORDERED: Ondansetron ODT 4 mg TAB 4 MG TAB PO PRN (08:52)
[2020-10-23] MEDS ORDERED: diPHENhydraMINE 25 mg TAB PO PRN (08:52)
[2020-10-23] MEDS ORDERED: diPHENhydraMINE IV 50 MG/ML 1 ml VIAL (BENADRYL) IV PRN (08:52)
[2020-10-23] MEDS ORDERED: Morphine 2 MG/ML SYRINGE IV PRN (08:52)
[2020-10-23] MEDS ORDERED: Dexamethasone IV 4 MG/ML VIAL 1 ml VIAL ONE (11:32)
[2020-10-23] MEDS: Lactated Ringers 1000 ml BAG 1,000 ML IV SCH (12:15)
[2020-10-23] MEDS: oxyCODONE/Acetamin 5/325 mg TAB PO PRN ×2 (13:21→20:46)
[2020-10-23] MEDS: Vitamin THERAPEUTIC TAB PO SCH (13:23)
[2020-10-23] MEDS: Magnesium Hydroxide LIQ 30 ML UDC PO SCH ×2 (13:23→21:32)
[2020-10-23] MEDS: Clindamycin 600 MG/D5W BAG 600 MG/50 ML BAG IV SCH (16:08)
[2020-10-24] MEDS: Clindamycin 600 MG/D5W BAG 600 MG/50 ML BAG IV SCH ×2 (00:48→08:29)
[2020-10-24] MEDS: Lactated Ringers 1000 ml BAG 1,000 ML IV SCH (02:10)
[2020-10-24 05:24] LABS: Hematocrit 35 % (35-47); Hemoglobin 11.7 g/dL (12.0-16.0); Platelet Count 184 10^3/uL (150-450)
[2020-10-24 05:39] LABS: Calcium 9.2 mg/dL (8.6-10.3); EGFR African American 102.7 (>60); EGFR Non-African American 84.8 (>60); Potassium 3.8 mmol/L (3.5-5.0)
[2020-10-24] MEDS: oxyCODONE/Acetamin 5/325 mg TAB PO PRN (06:50)
[2020-10-24] MEDS: Vitamin THERAPEUTIC TAB PO SCH (08:29)
[2020-10-24] MEDS: Magnesium Hydroxide LIQ 30 ML UDC PO SCH (08:32)
[2020-10-24 11:19] VITALS: BP 129/65
== END 2020-10-24 16:10 | disposition home health service (06) ==
LOC: AA 05:44 → SSU 12:11
PROVIDERS: ADMIT Orthopaedic Surgery Adult Reconstructive Orthopaedic Surgery; ATTEND Orthopaedic Surgery Adult Reconstructive Orthopaedic Surgery

== ENCOUNTER 2021-05-21 07:10 | Inpatient (IN) ==
[~2021-05-21 07:10] MED LIST: Buffered Lidocaine 1% SYRIN 1 ml INTRADERM ONE; Lactated Ringers 1000 ml BAG 1,000 ML IV SCH
[2021-05-21] MEDS ORDERED: Clindamycin 900 MG/D5W BAG 900 MG/50 ML BAG IVPB ONE (07:36)
[2021-05-21] MEDS ORDERED: Midazolam 2 mg/2 ml VIAL 1 mg/ml 2 ml VIAL (2 mg) ONE (07:37)
[2021-05-21] MEDS ORDERED: Dexamethasone IV 4 MG/ML VIAL 1 ml VIAL ONE (07:37)
[2021-05-21] MEDS ORDERED: Bupivacaine 0.5% SDV PF 30ML VIAL ONE (07:37)
[2021-05-21] MEDS ORDERED: Lidocaine 1% MPF 5 ML VIAL ONE (08:14)
[2021-05-21] MEDS ORDERED: fentaNYL 100 mcg/2 ml 50 MCG/ML VIAL ONE (08:45)
[2021-05-21] MEDS ORDERED: ROPIVACAINE 5 MG/ML 30 ML BTL (0.5%) ONE (09:24)
[2021-05-21] MEDS ORDERED: Phenylephrine 40 mcg/mL 10mL (400mcg) SYRINGE ONE (09:36)
[2021-05-21] MEDS ORDERED: Propofol 1,000 MG/100 ML BTL ONE (10:05)
[2021-05-21] MEDS ORDERED: Magnesium Hydroxide LIQ 30 ML UDC PO PRN (10:36)
[2021-05-21] MEDS ORDERED: Morphine 2 MG/ML SYRINGE IV PRN (10:36)
[2021-05-21] MEDS ORDERED: diPHENhydraMINE IV 50 MG/ML 1 ml VIAL (BENADRYL) IV PRN (10:36)
[2021-05-21] MEDS ORDERED: Lactulose 30 ml UDC PO PRN (10:36)
[2021-05-21] MEDS ORDERED: Ondansetron ODT 4 mg TAB 4 MG TAB PO PRN (10:36)
[2021-05-21] MEDS ORDERED: Ondansetron 4 mg VIAL 2 MG/ML 2 ml VIAL IV PRN (10:36)
[2021-05-21] MEDS ORDERED: diPHENhydraMINE 25 mg TAB PO PRN (10:36)
[2021-05-21] MEDS: Lactated Ringers 1000 ml BAG 1,000 ML IV SCH (13:00)
[2021-05-21] MEDS: ceFAZolin 1 GM ADVAN 1 GM in NS 0.9% 50 ML 50 ML IVPB SCH (16:57)
[2021-05-21] MEDS ORDERED: NON FORMULARY MED (Irbesartan 300 MG tablet) PO SCH (21:00)
[2021-05-21] MEDS ORDERED: CMCS: Irbesartan 150 mg TAB (NF) PO SCH (21:00)
[2021-05-21] MEDS: Magnesium Hydroxide LIQ 30 ML UDC PO SCH (22:06)
[2021-05-22] MEDS: Lactated Ringers 1000 ml BAG 1,000 ML IV SCH (00:03)
[2021-05-22] MEDS: ceFAZolin 1 GM ADVAN 1 GM in NS 0.9% 50 ML 50 ML IVPB SCH ×2 (00:31→08:21)
[2021-05-22 06:30] LABS: Hematocrit 36 % (35-47); Hemoglobin 11.9 g/dL (12.0-16.0); Mean Platelet Volume 8.1 fL (7.4-10.4); Platelet Count 219 10^3/uL (150-450)
[2021-05-22 06:46] LABS: Calcium 9.2 mg/dL (8.6-10.3); Potassium 4.1 mmol/L (3.5-5.0); eGFR CKD-EPI 102.6 (>60)
[2021-05-22] MEDS: Magnesium Hydroxide LIQ 30 ML UDC PO SCH (08:31)
[2021-05-22] MEDS ORDERED: Vitamin THERAPEUTIC TAB PO SCH (09:00)
[2021-05-22 15:39] VITALS: BP 117/77
== END 2021-05-22 16:45 | disposition home or self-care (01) | DRG 302 ==
LOC: AA 07:10 → SSU 13:06
PROVIDERS: ADMIT Orthopaedic Surgery Adult Reconstructive Orthopaedic Surgery; ATTEND Orthopaedic Surgery Adult Reconstructive Orthopaedic Surgery